=== PATIENT | female | born 1980 | race Caucasian/White ===

== ENCOUNTER → 2016-10-17 | Outpatient (CLI) | payer OTHER ==
[~2016-10-17] MED LIST: CETI10TA99 PEG; CHOL100010 PO; MELO7.5T5 PO
--- NOTE | 2016-10-17 13:48 | MAMMOGRAPHY REPORT ---
ULTRASOUND OF LEFT BREAST: 10/17/2016 CLINICAL HISTORY: Short interval follow-up of left breast mass. COMPARISON: Comparison is made to exams dated: 10/09/2015 ultrasound, 04/09/2015 ultrasound, 04/09/20 15 mammogram, 10/05/2014 ultrasound, and 10/05/2014 mammogram - [facility]. TECHNIQUE: Real-time targeted ultrasound of the left breast was performed. FINDINGS: Real-time, high resolution targeted ultrasound was performed of the area of the previously seen left breast mass. In the left breast at 9:00 periareolar region, again noted is an oval parall el circumscribed hypoechoic solid mass with associated coarse calcifications anteriorly. The mass me asures 1.5 x 1.0 x 1.4 cm, and is stable in size dating back to the September 2014 exam where the mass kade sured 1.6 x 1.1 x 1.5 cm. Given the benign morphology and long-term stability, the mass is benign an d compatible with a fibroadenoma. IMPRESSION: ACR BI-RADS CATEGORY 2: BENIGN Hypoechoic 1.5 cm mass in the left 9:00 periareolar breast is stable dating back to the September 2014 exa m, and is benign and compatible with a fibroadenoma. There is no sonographic evidence of malignancy. Recommend routine bilateral screening mammograms starting at the age of 40 unless otherwise clinica lly indicated. The patient was verbally notified of the results. Esthela Quintero M.D. ah/:10/17/2016 09:06:33 Rail Gang Supervisor: Merced HAYES)([place]), [facility] letter sent: Normal 1/2 BI-RADS Code: ACR BI-RADS Category 2: Benign
== END ==
LOC: C.MAMM 08:41
PROVIDERS: ATTEND Nurse Practitioner
DX: Z09 Encounter for follow-up examination after completed treatment for conditions other than malignant neoplasm (principal)

== ENCOUNTER → 2017-05-21 | Outpatient (CLI) | payer OTHER ==
[~2017-05-21] MED LIST changes: +GADAVIST IV PRN
--- NOTE | 2017-05-21 17:13 | DIAGNOSTIC IMAGING REPORT ---
LUMBAR SPINE COMBINATION CLINICAL HISTORY: 37-year-old female with M54.16 Lumbar radiculopathy, acute MRI [id number]. Acute bilateral lower extremity weakness with back pain. History of prior cervical cancer with hysterectomy. COMPARISON: Lumbar spine radiographs 12/21/2014, lumbar spine MRI 07/04/2015, CT abdomen and pelvis 09/26/2014. TECHNIQUE: Multiplanar, multi sequence MRI of the lumbar spine was performed both with and without the use of 6.4 mL Gadavist. FINDINGS: The large [id number] pilot safety inspector localizer images demonstrate no gross abnormality. 2.3 cm ovoid T2 hyperintense structure within the region of the left ovary with peripheral enhancement suggesting an ovarian follicle, not completely characterized on this exam. Additionally, there is a 1.3 cm T2 hyperintense lesion of the liver suggesting a hepatic cyst which has mildly enlarged from comparison dated 09/26/2014 where this lesion measured approximately 7 mm. The uterus appears to be surgically absent. No acute fracture or subluxation. No focal bone marrow edema or marrow-replacing process. Conus medullaris terminates at the T12-L1 level. Signal within the cord appears within normal limits. Cauda equina appear within normal limits. The axial images are mildly motion degraded. There is no abnormal enhancement identified. T12-L1: Minimal posterior disc bulge without significant central canal or foraminal narrowing on the sagittal images alone. L1-L2: Mild disc desiccation is again seen with a small posterior disc bulge which flattens the ventral thecal sac. There is no significant central canal or foraminal narrowing. Unchanged. L2-L3: Mild disc desiccation with small broad-based posterior disc bulge. The previously described small annular fissure is not identified. Again, there is flattening of the ventral thecal sac without significant central canal or foraminal narrowing. Unchanged. L3-L4: No central canal or neural foraminal stenosis. L4-L5: Minimal disc desiccation with broad-based posterior disc bulge causes mild right and mild to moderate left foraminal stenosis. This has progressed from comparison study. L5-S1: Small broad-based posterior disc bulge with mild narrowing of the bilateral neuroforamen. IMPRESSION: 1. Mild disc desiccation with broad-based posterior disc bulge at L4-L5 causes mild right and mild to moderate left foraminal narrowing, progressed from comparison study. 2. Mild discogenic degenerative changes at L1-L2 and L2-L3 without significant central canal or foraminal narrowing. 3. 2.3 cm ovoid T2 hyperintense lesion of the left ovary with peripheral enhancement suggests ovarian follicle. The above report was generated using voice recognition software. It may contain grammatical, syntax or spelling errors. Dictated: 05/21/2017 4:54 PM Transcribed: 05/21/2017 5:13 PM [email or web address] Electronically signed by: Fede Lyn M.D. 05/21/2017 5:34 PM Dictated Date/Time: 05/21/2017 4:54 PM
== END | disposition home or self-care (01) ==
LOC: C.MRI 15:33
PROVIDERS: ATTEND Psychiatry & Neurology Neurology
DX: M54.16 Radiculopathy, lumbar region (principal)

== ENCOUNTER 2017-06-21 12:39 | Emergency (ER) | payer OTHER ==
[~2017-06-21] VITALS: Ht 165.1 cm; Wt 67.4 kg
[~2017-06-21 12:39] MED LIST changes: -GADAVIST IV PRN
[2017-06-21 12:53] VITALS: TEMP 36.9; Ht 165.1 cm; Wt 67.4 kg
[2017-06-21] MEDS ORDERED: KETOROLAC TROMETHAMINE 30 MG/ML VIAL IV STA (13:40)
[2017-06-21] MEDS ORDERED: METOCLOPRAMIDE HCL INJ 5 MG/ML 2 ML VIAL IV. STA (13:40)
[2017-06-21] MEDS ORDERED: DiphenhydrAMINE HCL 50 MG/ML VIAL IV STA (13:40)
[2017-06-21] MEDS ORDERED: SODIUM CHLORIDE 0.9% 1000ML 1,000 ML IV ONE (13:45)
[2017-06-21 15:01] VITALS: BP 112/67; PULSE 82; O2SAT 97
--- NOTE | 2017-06-21 19:30 | EMERGENCY ROOM VISIT NOTE ---
ED Visit Note First contact with patient: 13:29 CHIEF COMPLAINT: Migraine headache. HISTORY OF PRESENT ILLNESS: Ms. Vásquez is a 37 year-old white female who ambulates into the ED accompanied by a female friend complaining of a migraine headache. She reports a gradual onset of a severe migraine headache that started approximately 2 days ago. The pain is constant and it is slowly increasing in severity. This is not the worst headache of the life and is similar to previous migraines. Currently she describes the headache as a pounding sensation in the bifrontal area. She rates the pain a 7/10. The pain is radiating to behind her eyes and into the occipital area and down the bilateral trapezius muscles. Her pain worsens with exposure to bright lights and loud noises. She has not identified any alleviating factors related to the pain. She reports she was recently started on a daily migraine headache medication but does not remember the name; she reports she has been taking this as prescribed and has had no relief. Additionally she reports she has rescue migraine headache medications and when she discusses that she does not remember the name but it is prescribed like Imitrex. She reports she is tried to dose of this medications over the last 2 days and has had no relief of her discomfort. There is been associated light and sound sensitivity, nausea without vomiting. She denies fever, chills, sweats, skin eruptions, skin color changes, dizziness , visual changes, hearing changes, difficulty speaking, difficulty swallowing, difficulty ambulating/correlating body movements, recent head trauma, recent dental trauma/procedures, upper respiratory tract symptoms, neck stiffness, cough, wheezing, shortness of breath, abdominal pain, joint pain, extremity weakness/numbness/tingling. REVIEW OF SYSTEMS: As noted above in History of Present Illness; all body systems reviewed with the patient as noted above. PAST MEDICAL HISTORY: As previously noted, chronic back pain, hysterectomy, D&C. CURRENT MEDICATIONS: As noted above. ALLERGIES TO MEDICATIONS: Acetaminophen, hydrocodone, iron. SOCIAL HISTORY: Patient is not employed; she feels safe in her home environment; she admits to tobacco and alcohol use. PHYSICAL EXAM: Vital Signs: Date Time Temp Pulse Resp B/P (MAP) Pulse Ox O2 Delivery O2 Flow Rate FiO2 06/21/17 15:01 82 16 112/67 97 06/21/17 14:47 78 16 112/ 97 Room Air 06/21/17 12:53 36.9 94 16 120/81 98 Room Air GENERAL: 37 year-old white female in moderate distress due to pain, afebrile and hemodynamically stable. Found lying in a darkened room NEUROLOGIC: Awake, alert and oriented to person place and time. Answering questions appropriately and following commands. Cranial nerves II-XII grossly intact. No focal neurologic deficits noted. SKIN: Warm, dry and pink. No rashes, lesions or soft tissue trauma noted. HEENT: Normocephalic, atraumatic. PERRLA. EOMI without nystagmus. No tenderness or erythema over the frontal or maxillary sinuses. External ears are nontender. Auditory canals are pink and patent and tympanic membranes are pearly [place] with normal light reflex. Sclerae white and conjunctiva pink without drainage. Oral cavity is moist and pink. Airway is patent. Speech is normal and clear. Uvula is midline and no abscesses are seen. No tonsillar hypertrophy or exudates. Funduscopic examination was deferred due to light sensitivity. NECK: Soft and supple. No nuchal rigidity or meningismus. Full range of motion of the cervical spine. No lymphadenopathy, jugular venous distention, or bruits noted. THORAX: Lungs clear to auscultation and equal bilaterally with no wheezing, crackles, rhonchi or stridor and equal chest wall movements. HEART: Regular rate and rhythm with no murmurs, rubs or gallops. ABDOMEN: Soft and nontender with bowel sounds present in all quadrants; no rigidity, rebound tenderness, organomegaly or guarding. MUSCULOSKELETAL: Full range of motion of all joints without any significant discomfort and the gait is normal. ED COURSE: Patient is assessed as noted above. Patient's medication list was reviewed. An IV lock was initiated and patient was hydrated with normal saline, she received 30 mg of Toradol IV for pain, 10 mg of Reglan IV for nausea and 50 mg of Benadryl IV. Patient was reassessed multiple times during her stay in the emergency department. Patient was educated about today's findings and instructed on her treatment plan ; she verbalized understanding and agreement with this plan. CLINICAL IMPRESSION: Migraine headache DECISION MAKIN-year-old female who presents for evaluation of headache. She is afebrile, well appearing, and hemodynamically stable. She has no signs of a sinus, dental , or ear infection and no evidence of meningismus. She is neurologically intact. I do not suspect a headache to be secondary to a subarachnoid hemorrhage, meningitis, encephalitis, or intracranial mass lesion. DISPOSITION: Patient was discharged to home in stable condition accompanied by by family members; prior to departure she was reassessed and subjectively reported that she was pain and symptom-free. DISCHARGE INSTRUCTIONS: Rest at home, in a quiet darkened room and allow the medication to work for the pain. Continue to follow up current treatment plan prescribed by your physician for your migraine headaches. See your own doctor in follow-up this week for continued care and treatment. Return to the emergency department as needed for worsening/uncontrolled headaches, fevers, any abnormal neurological symptoms or any new/concerning symptoms.
== END 2017-06-21 14:50 | disposition home or self-care (01) ==
LOC: C.EDB 12:40 → C.EDD 14:50
DX: G43.909 Migraine, unspecified, not intractable, without status migrainosus (principal); M54.9 Dorsalgia, unspecified; G89.29 Other chronic pain; Z90.710 Acquired absence of both cervix and uterus; Z88.6 Allergy status to analgesic agent; Z88.8 Allergy status to other drugs, medicaments and biological substances; F17.200 Nicotine dependence, unspecified, uncomplicated

== ENCOUNTER → 2017-12-21 | Outpatient (CLI) | payer OTHER ==
[~2017-12-21] MED LIST changes: -CETI10TA99 PEG; -CHOL100010 PO; +DICL50TA3 PO; +EFF75 PO; -MELO7.5T5 PO
[2017-12-21 17:20] LABS: BASO % 0.2 %; BASO ABS # 0.02 K/uL (0-0.2); EOS % 2.1 %; EOS ABS # 0.19 K/uL (0-0.5); HEMATOCRIT 37.8 % (37-47); HEMOGLOBIN 12.8 g/dL (12.0-16.0); IG# 0.02 K/uL (0.00-0.02); LYMPH % 23.8 %; LYMPH ABS # 2.16 K/uL (1.2-3.4); MEAN CELL VOLUME 95.9 fL (80-100); MEAN CORPUSCULAR HEMOGLOBIN 32.5 pg (25-34); MEAN CORPUSCULAR HGB CONC 33.9 g/dl (32-36); MEAN PLATELET VOLUME 10.6 fL (7.4-10.4); MONO % 9.2 %; MONO ABS # 0.83 K/uL (0.11-0.59); NEUT % 64.5 %; NEUT ABS # 5.85 K/uL (1.4-6.5); PLATELET COUNT 268 K/uL (130-400); RED CELL DISTRIBUTION WIDTH CV 12.9 % (11.5-14.5); RED CELL DISTRIBUTION WIDTH SD 45.3 fL (36.4-46.3); WHITE BLOOD COUNT 9.07 K/uL (4.8-10.8)
[2017-12-21 17:38] LABS: BLOOD UREA NITROGEN 11 mg/dl (7-18); CALCIUM 8.3 mg/dl (8.5-10.1); CARBON DIOXIDE 25 mmol/L (21-32); GLUCOSE 89 mg/dl (70-99); POTASSIUM 3.4 mmol/L (3.5-5.1); SODIUM 141 mmol/L (136-145)
== END | disposition home or self-care (01) ==
LOC: C.LABPVFM 14:30
PROVIDERS: ATTEND Nurse Practitioner
DX: R23.8 Other skin changes (principal); R42 Dizziness and giddiness; I95.1 Orthostatic hypotension